=== PATIENT | female | born 1990 | race Caucasian/White ===

== ENCOUNTER → 2018-02-19 | Outpatient (REF) | payer OTHER | LOC: M SFHCLERA 15:24 | PROVIDERS: ATTEND Physician Assistant | DX: J02.9 Acute pharyngitis, unspecified (principal) ==

== ENCOUNTER → 2018-02-19 | Outpatient (CLI) | payer OTHER ==
--- NOTE | 2018-02-20 07:19 | REP ---
TWO VIEW CHEST: HISTORY: Cough and congestion. COMPARISON: None. FINDINGS: The superior mediastinal structures are midline. The cardiac silhouette is unremarkable in size, shape and position. The diaphragmatic surfaces of the lungs are regular and the costophrenic angles are clear. The pulmonary self are clear. The imaged osseous structures are intact. IMPRESSION: There is no acute cardiopulmonary disease.. Electronically Signed by Juan Herrera DO 02/20/2018 10:26 A
== END ==
LOC: M LRY 15:36
PROVIDERS: ATTEND Physician Assistant
DX: J02.9 Acute pharyngitis, unspecified (principal); R05 Cough; R09.89 Other specified symptoms and signs involving the circulatory and respiratory systems
CPT/HCPCS: 71046; 87880; 94640; G0463; J7644